=== PATIENT | female | born 1980 | race Caucasian/White ===

== ENCOUNTER 2017-07-19 16:28 | Emergency (ER) | payer OTHER ==
[~2017-07-19] VITALS: Ht 154.9 cm; Wt 62.6 kg
[~2017-07-19 16:28] MED LIST: ALBUAER2 INH; CLX/20 PO; CMP/10 PO; KLN5X PO; NICO1DIS TOP; OMEP20TA PO; PRVIN525 NEB; QUET1TAB34 PO; SUCR1TAB PO; WLL100 PO
[2017-07-19 16:57] VITALS: TEMP 37.2; Ht 154.9 cm; Wt 62.6 kg
[2017-07-19] MEDS ORDERED: SODIUM CHLORIDE 0.9% 1000ML 1,000 ML IV STA (17:11)
[2017-07-19] MEDS ORDERED: FAMOTIDINE 20MG/102 ML D5W IV STA (17:11)
[2017-07-19 17:32] LABS: HEMATOCRIT 28.5 % (37-47); MEAN CELL VOLUME 93.4 fL (80-100); MEAN CORPUSCULAR HEMOGLOBIN 30.2 pg (25-34); MEAN CORPUSCULAR HGB CONC 32.3 g/dl (32-36); MEAN PLATELET VOLUME 8.8 fL (7.4-10.4); PLATELET COUNT 273 K/uL (130-400); RED BLOOD COUNT 3.05 M/uL (4.2-5.4)
[2017-07-19 17:40] LABS: URINE APPEARANCE CLEAR (CLEAR); URINE BILIRUBIN NEG (NEG); URINE COLOR YELLOW; URINE NITRITE NEG (NEG); URINE SPECIFIC GRAVITY 1.009 (1.000-1.030); UROBILINOGEN NEG (NEG); ZZUR CULT IF INDIC CLEAN CATCH NO
[2017-07-19 17:50] LABS: BASO % 0.2 %; BASO ABS # 0.02 K/uL (0-0.2); COMPLETE YES; EOS % 2.8 %; IG% 0.4 %; LYMPH % 33.5 %; LYMPH ABS # 3.55 K/uL (1.2-3.4); MONO % 8.1 %
[2017-07-19 17:54] LABS: ALT/SGPT 14 U/L (12-78); BLOOD UREA NITROGEN 12 mg/dl (7-18); BUN/CREATININE RATIO 10.8 (10-20); CALCIUM 8.4 mg/dl (8.5-10.1); CARBON DIOXIDE 23 mmol/L (21-32); CHLORIDE 110 mmol/L (98-107); CREATININE 1.11 mg/dl (0.60-1.20); GLUCOSE 107 mg/dl (70-99); POTASSIUM 3.9 mmol/L (3.5-5.1); SODIUM 142 mmol/L (136-145)
[2017-07-19 17:56] LABS: MANUAL MICROSCOPIC REQUIRED? NO; REVIEW REQ? NO
[2017-07-19 17:59] LABS: ALKALINE PHOSPHATASE 75 U/L (45-117); AST/SGOT 10 U/L (15-37)
--- NOTE | 2017-07-19 18:09 | DIAGNOSTIC IMAGING REPORT ---
CHEST ONE VIEW PORTABLE CLINICAL HISTORY: Cough. COMPARISON STUDY: Chest radiograph and chest CT May 16, 2016. FINDINGS: Lung volumes are diminished. No pneumothorax or pleural effusion is present. There is no lobar consolidation. Slight increased bibasilar markings are present. Cardiothymic silhouette is stable. There is no evidence of pulmonary edema. IMPRESSION: Diminished lung volumes with increased bibasilar markings which likely reflects normal vessels or atelectasis. Right lower lobe pneumonia is considered less likely but would be difficult to exclude on this exam. Electronically signed by: Den Mustafa M.D. 07/19/2017 6:08 PM Dictated Date/Time: 07/19/2017 6:06 PM
[2017-07-19 18:40] VITALS: BP 112/81; PULSE 92; O2SAT 96
--- NOTE | 2017-07-19 23:55 | EMERGENCY ROOM VISIT NOTE ---
History Report prepared by Brendon: Prosper Laird Under the Supervision of: Dr. Fuentes Cadena D.O. First contact with patient: 17:00 Chief Complaint: ABDOMINAL PAIN Stated Complaint: CAN'T BREATH,ABD PAIN,VOMITING History of Present Illness The patient is a 37 year old female who presents to the Emergency Room with complaints of constant abdominal pain beginning four days ago. The patient states she has been experiencing this pain for the past few years, but it worsened four days ago. She reports she had an endoscopy performed five days ago by GI that showed she had a stomach ulcer. The patient notes she was at [facility] four days ago and was told they could not do anything for the pain because it was a stomach ulcer. The patient states she is also experiencing wheezing and shortness of breath. She reports he has a history of asthma, and this feels like a typical asthma flare. The patient notes she developed coughing and stabbing chest pain yesterday. She notes nothing helps it , and she has bilateral edema to her legs. The patient states she has a history of blood clots in her legs, but she is not on blood thinners. She reports she still has her appendix and gallbladder. The patient denies smoking, runny nose, fevers, shots being up to date, and excessive use of NSAIDs. She notes only morphine works for pain, and she takes Carafate daily. Source of History: patient Onset: four days ago Position: abdomen Timing: constant Associated Symptoms: + cough, + chest pain, + SOB, No fevers Note: Associated symptoms: wheezing, bilateral edema to her legs Denies: runny nose and smoking Review of Systems See HPI for pertinent positives & negatives. A total of 10 systems reviewed and were otherwise negative. Past Medical & Surgical Medical Problems: (1) Suicide attempt Family History No significant family history Social History Smoking Status: Never Smoker Alcohol Use: none Marital Status: Housing Status: lives with family Occupation Status: unemployed Current/Historical Medications Scheduled Bupropion HCl (Bupropion HCl), 100 MG PO BID Citalopram (Citalopram Hydrobromide), 20 MG PO DAILY Clonazepam (Clonazepam), 0.5 MG PO HS Omeprazole (Omeprazole), 40 MG PO DAILY Quetiapine Fumarate (Seroquel), 200 MG PO HS Sucralfate (Sucralfate), 1 GM PO TID Scheduled PRN Albuterol (Ventolin), 2 PUFFS INH QID PRN for SOB/Wheezing Albuterol Sulf (Albuterol Sulfate), 1 VIAL NEB QID PRN for SOB/Wheezing Prochlorperazine Maleate (Prochlorperazine Maleate), 10 MG PO TID PRN for Nausea or Vomiting Allergies Coded Allergies: Acetaminophen (Verified Allergy, Unknown, Shortness of breath, 07/19/17) Diphenhydramine (Verified Allergy, Unknown, rash, 07/19/17) Hydromorphone (Verified Allergy, Unknown, rash, 07/19/17) Penicillins (Verified Allergy, Unknown, Hives, 07/19/17) Aspirin (Unverified Adverse Reaction, Unknown, ulcers, 07/19/17) Physical Exam Vital Signs Date Time Temp Pulse Resp B/P (MAP) Pulse Ox O2 Delivery O2 Flow Rate FiO2 07/19/17 18:40 92 18 112/81 96 Room Air 07/19/17 16:57 37.2 78 16 122/63 95 Room Air Physical Exam GENERAL: Sitting up in bed, disheveled, chronic appearing, non-toxic EYE EXAM: normal conjunctiva, PERRL and EOM's grossly intact OROPHARYNX: no exudate, no erythema, lips, buccal mucosa, and tongue normal and mucous membranes are moist NECK: supple, no nuchal rigidity, no adenopathy, non-tender LUNGS: Diffuse wheezing bilaterally. Normal chest wall mechanics HEART: no murmurs, S1 normal and S2 normal ABDOMEN: abdomen soft, non-tender, normo-active bowel sounds, no masses, no rebound or guarding. No pain upon distraction. RECTAL (Performed in the presence of a female nurse): No external hemorrhoids. Heme negative stool. BACK: Back is symmetrical on inspection and there is no deformity, no midline tenderness, no CVA tenderness. SKIN: no rashes and no bruising UPPER EXTREMITIES: upper extremities are grossly normal. LOWER EXTREMITIES: No pitting edema. Calves are equal bilateral NEURO EXAM: Normal sensorium, cranial nerves II-XII grossly intact, normal speech, no gross weakness of arms, no gross weakness of legs. Medical Decision & Procedures ER Provider Diagnostic Interpretation: Radiology results as stated below per my review and the radiologist's interpretation: CHEST ONE VIEW PORTABLE CLINICAL HISTORY: Cough. COMPARISON STUDY: Chest radiograph and chest CT May 16, 2016. FINDINGS: Lung volumes are diminished. No pneumothorax or pleural effusion is present. There is no lobar consolidation. Slight increased bibasilar markings are present. Cardiothymic silhouette is stable. There is no evidence of pulmonary edema. IMPRESSION: Diminished lung volumes with increased bibasilar markings which likely reflects normal vessels or atelectasis. Right lower lobe pneumonia is considered less likely but would be difficult to exclude on this exam. Electronically signed by: Den Mustafa M.D. 07/19/2017 6:08 PM Dictated Date/Time: 07/19/2017 6:06 PM Laboratory Results 07/19/17 17:21 Red Blood Count 3.05, Mean Corpuscular Volume 93.4, Mean Corpuscular Hemoglobin 30.2, Mean Corpuscular Hemoglobin Concent 32.3, Mean Platelet Volume 8.8, Neutrophils (%) (Auto) 55.0, Lymphocytes (%) (Auto) 33.5, Monocytes (%) (Auto) 8.1, Eosinophils (%) (Auto) 2.8, Basophils (%) (Auto) 0.2, Neutrophils # (Auto) 5.83, Lymphocytes # (Auto) 3.55, Monocytes # (Auto) 0.86, Eosinophils # (Auto) 0.30, Basophils # (Auto) 0.02 07/19/17 17:21 Test 07/19/17 17:21 07/19/17 17:22 White Blood Count 10.60 K/uL (4.8-10.8) Red Blood Count 3.05 M/uL (4.2-5.4) Hemoglobin 9.2 g/dL (12.0-16.0) Hematocrit 28.5 % (37-47) Mean Corpuscular Volume 93.4 fL (80-100) Mean Corpuscular Hemoglobin 30.2 pg (25-34) Mean Corpuscular Hemoglobin Concent 32.3 g/dl (32-36) Platelet Count 273 K/uL (130-400) Mean Platelet Volume 8.8 fL (7.4-10.4) Neutrophils (%) (Auto) 55.0 % Lymphocytes (%) (Auto) 33.5 % Monocytes (%) (Auto) 8.1 % Eosinophils (%) (Auto) 2.8 % Basophils (%) (Auto) 0.2 % Neutrophils # (Auto) 5.83 K/uL (1.4-6.5) Lymphocytes # (Auto) 3.55 K/uL (1.2-3.4) Monocytes # (Auto) 0.86 K/uL (0.11-0.59) Eosinophils # (Auto) 0.30 K/uL (0-0.5) Basophils # (Auto) 0.02 K/uL (0-0.2) RDW Standard Deviation 53.6 fL (36.4-46.3) RDW Coefficient of Variation 15.8 % (11.5-14.5) Immature Granulocyte % (Auto) 0.4 % Immature Granulocyte # (Auto) 0.04 K/uL (0.00-0.02) D-Dimer 560 ug/L FEU (0-500) Anion Gap 9.0 mmol/L (3-11) Est Creatinine Clear Calc Drug Dose 58.3 ml/min Estimated GFR () 73.0 Estimated GFR (Non- 62.9 BUN/Creatinine Ratio 10.8 (10-20) Calcium Level 8.4 mg/dl (8.5-10.1) Total Bilirubin 0.3 mg/dl (0.2-1) Direct Bilirubin < 0.1 mg/dl (0-0.2) Aspartate Amino Transf (AST/SGOT) 10 U/L (15-37) Alanine Aminotransferase (ALT/SGPT) 14 U/L (12-78) Alkaline Phosphatase 75 U/L (45-117) Troponin I < 0.015 ng/ml (0-0.045) Total Protein 6.9 gm/dl (6.4-8.2) Albumin 3.3 gm/dl (3.4-5.0) Lipase 121 U/L (73-393) Urine Color YELLOW Urine Appearance CLEAR (CLEAR) Urine pH 6.0 (4.5-7.5) Urine Specific Evans 1.009 (1.000-1.030) Urine Protein NEG (NEG) Urine Glucose (UA) NEG (NEG) Urine Ketones NEG (NEG) Urine Occult Blood NEG (NEG) Urine Nitrite NEG (NEG) Urine Bilirubin NEG (NEG) Urine Urobilinogen NEG (NEG) Urine Leukocyte Esterase NEG (NEG) Urine WBC (Auto) 1-5 /hpf (0-5) Urine RBC (Auto) 0-4 /hpf (0-4) Urine Hyaline Casts (Auto) 0 /lpf (0-5) Urine Epithelial Cells (Auto) 10-20 /lpf (0-5) Urine Bacteria (Auto) NEG (NEG) Laboratory results per my review. Medications Administered Medications (Trade) Dose Ordered Sig/Azeem Route Start Time Stop Time Status Last Admin Dose Admin Sodium Chloride 1,000 ml @ 999 mls/hr Q1H1M STAT IV 07/19/17 17:11 07/19/17 18:11 DC 07/19/17 17:11 999 MLS/HR Famotidine (Pepcid 20mg/100 ml) 20 mg ONE STAT IV 07/19/17 17:11 07/19/17 17:14 DC 07/19/17 17:11 20 MG ECG Indication: SOB/dyspnea Rate (beats per minute): 95 Rhythm: sinus rhythm Findings: T-wave inversion (Lead III), left axis deviation, other (LVH) Comparison ECG Date: 05/16/16 Change: no significant change ED Course ED COURSE: Vital signs were reviewed and showed normotensive. The patients medical record was reviewed The above diagnostic studies were performed and reviewed. ED treatments and interventions as stated above. 1701: The patient was evaluated in room C08. A complete history and physical examination was performed. She declined GI cocktail and Peptid PO. She states the only thing she can take is Morphine. 1711: Ordered Famotidine 20mg IV, Sodium Chloride 1000 ml @ 999 mls/hr IV 1856: Upon reevaluation, the patient is feeling better. She states she would like to be discharged, and she will follow up with GI. I discussed my findings with the patient and she understands and agrees with the treatment plan. Based on the patients age, coexisting illnesses, exam and lab findings the decision to treat as an outpatient was made. The patient remained stable while under my care. The patient appeared well at the time of discharge. Medical Decision Differential diagnoses includes but is not limited to gastritis, peptic ulcer disease, GERD, gallbladder disease, pancreatitis, small bowel obstruction, acute coronary syndrome, pericarditis, ischemic bowel, irritable bowel disease, irritable bowel syndrome, appendicitis, diverticulitis, malignancy, hernia, urinary tract infection, torsion, /ectopic (if female), perforation, trauma, infectious. Patient is a 37-year-old female who presents to ER for multiple complaints. Her main complaint is abdominal pain located in the epigastric region which has been present for the past 3-4 days. She met she has had this for several years. It is fairly unchanged. Recent EGD by [facility] showed a small gastric ulcer. Hemoccult was negative. Labs show a chronic anemia. No leukocytosis. BMP was unremarkable along with LFTs, bilirubin and lipase. Patient also complains of chest pain which is sharp and stabbing and has been present since yesterday. She also admits to shortness of breath and wheezing which consistent with her asthma and not changed in any way. D-dimer was elevated at 560. Her history CT PE was ordered but patient declined. She requested discharge. She was given IV fluids and Pepcid. I explained risk and benefits. I discussed this with her as well. Alt requested to leave as they had to get home to her kids. The patient requested to leave. I considered this to be leaving against medical advice. I personally discussed the following with them. They currently had a medical condition of: Pulmonary embolism and I am concerned that they have clots in the lungs even despite feeling better. My proposed course of evaluation and treatment and that of any consultants is: CT PE. Benefits would include: possible diagnosis or excluding of PE or an alternative serious condition, which if identified early would lead to appropriate intervention in a timely manner lessing the burden of disability and . Risks of leaving before this had been completed include: misdiagnosis, worsening illness leading up to and including prolonged or permanent disability or . Specific risks pertinent, but not all inclusive, of their current medical condition include but are not limited to: and disability. I also discussed alternatives including: Duplexes of bilateral lower extremities. Despite this they stated they wanted to leave due to coming back home to her children and refused further evaluation , treatment, or admission at this time. They appear clinically sober, to be mentating appropriately, free from distracting injury, have controlled pain, appear to have intact insight, judgment, and reason and in my opinion have the capacity to make this decision. Specifically, they were able to verbally state back in a coherent manner their current medical condition/current diagnosis, the proposes course of treatment, and the risks, benefits, and alternatives of treatment versus leaving against medical advice. They understand that they may return to seek medical attention here at whatever time they want. I highly advised them to return to the Emergency Department immediately at the first chance they To have a CT PE, reconsidered treatment a/o admission, or had any other concerns. This would be without any repercussions. I recommended they follow-up with PCP/ER within 24 hours for further evaluation and treatment. They were discharged against medical advice Medication Reconcilliation Current Medication List: was personally reviewed by me Blood Pressure Screening Patient's blood pressure: Normal blood pressure Blood pressure disposition: Did not require urgent referral Impression Primary Impression: Abdominal pain Additional Impressions: Chronic anemia Elevated d-dimer Scribe Attestation The scribe's documentation has been prepared under my direction and personally reviewed by me in its entirety. I confirm that the note above accurately reflects all work, treatment, procedures, and medical decision making performed by me. Departure Information Dispostion Home / Self-Care Referrals Rajan Green PA-C (PCP) Forms Call Back Authorization, HOME CARE DOCUMENTATION FORM, IMPORTANT VISIT INFORMATION Patient Instructions Abdominal Pain - [facility], My [facility] Additional Instructions You were found to have an elevated d-dimer which puts you at a high likelihood of having a blood clot which could kill you with out warning. He is return to the closest ER when you have time to obtain a CT of the chest to rule this out. Please follow up with your primary care doctor with in the next 24 hours. Any worsening of your symptoms, please return to the ED immediately. This includes any fevers greater than 100.4, worsening pain, chest pain, shortness breath, passing out, persistent nausea, vomiting, unable to eat or drink, or any other concerning signs or symptoms from your standpoint. Problem Qualifiers Primary Impression: Abdominal pain Abdominal location: generalized Qualified Codes: R10.84 - Generalized abdominal pain
== END 2017-07-19 18:49 | disposition home or self-care (01) ==
LOC: C.EDB 16:29 → C.EDC 18:49
DX: R10.9 Unspecified abdominal pain (principal); D64.9 Anemia, unspecified; R78.89 Finding of other specified substances, not normally found in blood; Z98.890 Other specified postprocedural states; Z88.0 Allergy status to penicillin; Z88.5 Allergy status to narcotic agent; Z88.6 Allergy status to analgesic agent; Z88.8 Allergy status to other drugs, medicaments and biological substances

== ENCOUNTER 2017-08-15 01:05 | Emergency (ER) | payer OTHER ==
[~2017-08-15] VITALS: Ht 154.9 cm; Wt 64.5 kg
[~2017-08-15 01:05] MED LIST changes: -NICO1DIS TOP
[2017-08-15 01:15] VITALS: TEMP 36.8; Ht 154.9 cm; Wt 64.5 kg
[2017-08-15 02:30] VITALS: BP 162/92; PULSE 92; O2SAT 95
--- NOTE | 2017-08-15 23:21 | EMERGENCY ROOM VISIT NOTE ---
History First contact with patient: 02:02 Chief Complaint: ABDOMINAL PAIN Stated Complaint: THROWING UP,PAIN IN STOMACH Nursing Triage Summary: abdominal pain X 3 days with NV History of Present Illness The patient is a 37 year old female who presents to the Emergency Room with complaints of epigastric and right upper quadrant abdominal pain for the past several months. The patient states that her pain is the same as it has always been, and rates it a 9/10. The pain worsens with food. She states that she has nausea and vomiting. The patient reportedly had an upper endoscopy last month that was positive for ulcers. She reportedly has a follow-up appointment in October with gastroenterology. She does not have chest pain, chest tightness , shortness of breath, back pain, or lower abdominal pain. No fever or chills. Review of Systems More than 10 systems were reviewed and otherwise negative with the exception of history of present illness.+ Past Medical/Surgical History Medical Problems: (1) Suicide attempt Family History No significant family history Social History Smoking Status: Never Smoker Alcohol Use: none Marital Status: Housing Status: lives with family Occupation Status: unemployed Current/Historical Medications Scheduled Bupropion HCl (Bupropion HCl), 100 MG PO BID Citalopram (Citalopram Hydrobromide), 20 MG PO DAILY Clonazepam (Clonazepam), 0.5 MG PO HS Quetiapine Fumarate (Seroquel), 200 MG PO HS Sucralfate (Sucralfate), 1 GM PO TID Scheduled PRN Albuterol (Ventolin), 2 PUFFS INH QID PRN for SOB/Wheezing Albuterol Sulf (Albuterol Sulfate), 1 VIAL NEB QID PRN for SOB/Wheezing Prochlorperazine Maleate (Prochlorperazine Maleate), 10 MG PO TID PRN for Nausea or Vomiting Allergies Coded Allergies: Acetaminophen (Verified Allergy, Unknown, Shortness of breath, 07/19/17) Diphenhydramine (Verified Allergy, Unknown, rash, 07/19/17) Hydromorphone (Verified Allergy, Unknown, rash, 07/19/17) Penicillins (Verified Allergy, Unknown, Hives, 07/19/17) Aspirin (Unverified Adverse Reaction, Unknown, ulcers, 07/19/17) Physical Exam Vital Signs Date Time Temp Pulse Resp B/P (MAP) Pulse Ox O2 Delivery O2 Flow Rate FiO2 08/15/17 02:30 92 20 162/92 95 08/15/17 01:15 36.8 95 20 155/97 100 Room Air Physical Exam VITALS: Vitals are noted on the nurse's note and reviewed by myself. Vital signs stable. GENERAL: Well-developed, well-nourished, white female, who is in no acute distress and resting comfortably. Patient is cooperative with the examination. HEART: Regular rate and rhythm without murmurs gallops or rubs. LUNGS: Clear to auscultation bilaterally without wheezes, rales or rhonchi. No retractions or accessory muscle use. ABDOMEN: Positive normal bowel sounds x 4. Firm pressure while auscultating does not elicit tenderness response from the patient. Light palpation causes the patient to guard especially in the epigastric area. No CVA tenderness. MUSCULOSKELETAL: No muscle atrophy, erythema, or edema noted. Full range of motion without joint tenderness in all extremities. Medical Decision & Procedures ED Course Physical exam and history were performed. Nursing notes, EMR, and Medication List were personally reviewed. Patient appears to have epigastric and right upper quadrant abdominal pain. I was able to review the patient's [facility] medical record with the assistance of case management. The patient has had 6 visits to the [facility] emergency department in the past month. She did have an upper endoscopy with findings consistent with a small ulcer. The patient has subsequently no showed for her gastroenterology follow-up appointment. I was not able to identify her having an appointment in October as she mentioned. I discussed options of care with the patient, and recommended blood work, x-ray , and a GI cocktail. The patient states that she would not take anything by mouth unless we gave her morphine through her IV first. I calmly thoroughly explained to the patient that I would not be treating her chronic abdominal pain with morphine. If we identified another reason for his symptoms we could reconsider this. The patient was insistent that I give her IV morphine, and this discussion continued for several minutes. At this point the patient is refusing all care. She states that she will just follow-up with her family doctor on Thursday, and would like to sign out AMA. The patient has demonstrated no significant defect in the decision-making capacity to make choices. The encounter had a good level of communication with language the patient can easily understand. I feel trust was present and conveyed that our action/intentions were the best interest of the patient. The patient was given all relevant information and reiterated the explained risks and benefits. The patient explained the reasoning for refusing treatment clearly. The patient possesses and expresses a set of values and goals, the ability to communicate and understand, and an ability to reason and deliberate. Despite acting emphatically, attentively and with the utmost patient's the patient declined further treatment. I offered options, negotiated, and explored every reasonable choice. I must respect the patient's autonomy and that they feel that their choices are best for them despite the associated risks of leaving AGAINST MEDICAL ADVICE. Overall I have a strong suspicion the patient is exhibiting drug-seeking behavior. She has an examination consistent with malingering. Additionally she is at the department today with 2 other groups of people who are being seen by other providers for medical care. I explained the importance of following up appropriately with her providers and taking her at home medications. She was otherwise invited back here if any new, worsening, or concerning symptoms. The chart was completed utilizing [employer] Voice Recognition Software. Grammatical errors, random word insertions, pronoun errors, and incomplete sentences are an occasional consequence of this system due to software limitations, ambient noise, and hardware issues. Any formal questions or concerns about the content, text, or information contained within the body of this dictation should be directly addressed to the provider for clarification. . Medical Decision Differential diagnosis: Etiologies such as appendicitis, diverticulitis, PUD, biliary pathology, UTI, pancreatitis, obstruction, mesenteric ischemia, aortic pathology, infections, inflammatory bowel disease, renal colic, as well as others were entertained. Impression Primary Impression: Epigastric abdominal pain Departure Information Dispostion Against Medical Advice Condition GOOD Referrals Salo George M.D. Forms Call Back Authorization, HOME CARE DOCUMENTATION FORM, IMPORTANT VISIT INFORMATION Patient Instructions My [facility] Additional Instructions You were seen and evaluated today on an emergency basis only. This is not a substitute for, or an effort to provide, complete comprehensive medical care. It is not possible to recognize and treat all injuries or illnesses in a single emergency department visit. For this reason it is recommended that you followup with your measurement technician for ongoing care and evaluation. You may also follow with your primary care physician next week for further management. Continue your at-home medications. You are welcome to return to the emergency department anytime with new, worsening, or concerning symptoms.
== END 2017-08-15 02:30 | disposition left against medical advice (07) ==
LOC: C.EDB 01:07 → C.EDA 02:30
DX: R10.13 Epigastric pain (principal); Z79.899 Other long term (current) drug therapy; Z88.0 Allergy status to penicillin; Z88.6 Allergy status to analgesic agent; Z88.8 Allergy status to other drugs, medicaments and biological substances